=== PATIENT | female | born 1990 | race Caucasian/White ===

== ENCOUNTER 2022-11-20 15:59 | Inpatient (IN) | payer MEDICAID, OTHER ==
[~2022-11-20] VITALS: Ht 172.7 cm; Wt 101.0 kg
[2022-11-20 16:43] LABS: Urine Bacteria NONE SEEN /hpf (None Seen); Urine Blood Negative /uL (Negative); Urine Mucus FEW (None Seen); Urine Specific Gravity 1.023 (1.001-1.035); Urine WBC 1 /hpf (0 - 5)
[2022-11-20 17:03] LABS: Basophils # (auto) 0 10 ^3/uL (0-0.2); Basophils % (auto) 0.5 % (0.0-2.0); Eosinophils # (auto) 0.1 10 ^3/uL (0-0.8); Hemoglobin 10.8 g/dL (12.2-16.2); Lymphocytes # (auto) 1.3 10 ^3/uL (0.4-5.4); Monocytes # (auto) 0.3 10 ^3/uL (0-1.3); Neutrophils # (auto) 4.4 10 ^3/uL (1.6-8.6); White Blood Cell 6.1 10^3/uL (4.4-10.8)
[2022-11-20 17:05] LABS: Lymphocytes % (auto) 20.5 % (10.0-50.0); Mean Corpuscular Hemoglobin 21.9 pg (28.0-32.0); Mean Corpuscular Hgb Conc. 31.6 g/dL (32.0-36.0); Mean Corpuscular Volume 69.2 fL (80.0-100.0); Monocytes % (auto) 5.5 % (0.0-12.0); Neutrophils % (auto) 71.5 % (37.0-80.0); Red Blood Cells 4.92 10^6/uL (4.0-5.20); Red Cell Distribution Width 16.3 % (11.8-14.3)
[2022-11-20] MEDS ORDERED: PANTOPRAZOLE 40 MG/10 ML VIAL INJ IV ONE (17:15)
[2022-11-20] MEDS ORDERED: SODIUM CHLORIDE 0.9% 1,000 ML IV ONE (17:15)
[2022-11-20] MEDS ORDERED: ONDANSETRON HCL 4 MG/2 ML VIAL IV ONE (17:15)
[2022-11-20] MEDS ORDERED: MORPHINE SULFATE INJ 2 MG/ml SYRG IV ONE ×2 (17:15→22:15)
[2022-11-20 17:19] LABS: Albumin 3.5 g/dL (3.4-5.0); Calcium 8.4 mg/dL (8.5-10.1); Potassium 3.5 mmol/L (3.5-5.1)
[2022-11-20 17:22] LABS: BUN/Creatinine Ratio 11.4 (10.0-20.0); Bilirubin, Total 0.4 mg/dL (0.2-1.0); Total Protein 7.2 g/dL (6.4-8.2)
[2022-11-20] MEDS ORDERED: MORPHINE SULFATE INJ 2 MG/ml SYRG IM ONE (17:30)
[2022-11-20 17:37] LABS: INR 0.99 (0.9-1.15); Partial Thromboplastin Time 30.2 sec (24.6-33.4)
[2022-11-20] MEDS ORDERED: IOHEXOL 300 MG/ML 100ML BOTTLE IJ ONE (17:43)
[2022-11-20] MEDS ORDERED: ONDANSETRON HCL 4 MG/2 ML VIAL IV PRN (22:30)
[2022-11-20] MEDS ORDERED: TEMAZEPAM 15 MG CAP PO PRN (22:30)
[2022-11-20 23:23] LABS: Hematocrit 34.1 % (36.0-46.0); Hemoglobin 10.6 g/dL (12.2-16.2)
[2022-11-21 03:48] LABS: Urine Bacteria FEW /hpf (None Seen); Urine Blood Negative /uL (Negative); Urine Mucus FEW (None Seen); Urine WBC 3 /hpf (0 - 5)
[2022-11-21 05:50] LABS: Basophils # (auto) 0 10 ^3/uL (0-0.2); Basophils % (auto) 0.7 % (0.0-2.0); Eosinophils # (auto) 0.1 10 ^3/uL (0-0.8); Eosinophils % (auto) 1.9 % (0.0-7.0); Hematocrit 31.1 % (36.0-46.0); Hemoglobin 9.9 g/dL (12.2-16.2); Lymphocytes # (auto) 1.1 10 ^3/uL (0.4-5.4); Lymphocytes % (auto) 21.3 % (10.0-50.0); Mean Corpuscular Hgb Conc. 31.7 g/dL (32.0-36.0); Mean Corpuscular Volume 69.5 fL (80.0-100.0); Monocytes # (auto) 0.4 10 ^3/uL (0-1.3); Monocytes % (auto) 8.1 % (0.0-12.0); Neutrophils # (auto) 3.6 10 ^3/uL (1.6-8.6); Red Blood Cells 4.48 10^6/uL (4.0-5.20); Red Cell Distribution Width 16.3 % (11.8-14.3); White Blood Cell 5.3 10^3/uL (4.4-10.8)
[2022-11-21] MEDS ORDERED: metroNIDAZOLE 500MG/100ML 100 ML IV SCH (06:00)
[2022-11-21 06:23] LABS: Potassium 3.8 mmol/L (3.5-5.1)
[2022-11-21] MEDS: metroNIDAZOLE 500MG/100ML 100 ML IV SCH ×3 (06:25→21:55)
[2022-11-21 06:31] LABS: Albumin 2.9 g/dL (3.4-5.0); BUN/Creatinine Ratio 9.3 (10.0-20.0); Bilirubin, Total 0.3 mg/dL (0.2-1.0); Calcium 8.1 mg/dL (8.5-10.1); Total Protein 6.2 g/dL (6.4-8.2)
[2022-11-21] MEDS: HYDROcodone-ACET 5/325MG TAB PO PRN ×2 (06:41→20:21)
[2022-11-21] MEDS: cefTRIAXone 1GM/50ML D5W 50 ML IV SCH (09:16)
[2022-11-21] MEDS: PANTOPRAZOLE 40 MG TAB PO SCH (10:05)
[2022-11-21] MEDS: CIPROFLOXACIN 400MG/200ML 200 ML IV SCH ×2 (10:06→22:55)
[2022-11-21 16:53] VITALS: BP 113/60
[2022-11-21 17:00] VITALS: BP_SYST 110; BP_SYST 113; BP_DIAS 60; BP_DIAS 66
[2022-11-21 21:56] VITALS: BP 103/43
[2022-11-22 05:19] VITALS: BP 96/40
[2022-11-22] MEDS: metroNIDAZOLE 500MG/100ML 100 ML IV SCH ×3 (05:47→22:32)
[2022-11-22 09:00] VITALS: BP 95/53
[2022-11-22] MEDS: PANTOPRAZOLE 40 MG TAB PO SCH (09:22)
[2022-11-22] MEDS: cefTRIAXone 1GM/50ML D5W 50 ML IV SCH (09:22)
[2022-11-22] MEDS: CIPROFLOXACIN 400MG/200ML 200 ML IV SCH (09:23)
[2022-11-22] MEDS: HYDROcodone-ACET 5/325MG TAB PO PRN (11:24)
[2022-11-22] MEDS: LACTATED RINGER'S 1,000 ML IV SCH ×2 (12:30→18:37)
[2022-11-22 13:00] VITALS: BP 114/44
[2022-11-22 17:00] VITALS: BP 112/34
[2022-11-22] MEDS: ACETAMINOPHEN 325 MG TAB PO PRN (18:00)
[2022-11-22 22:00] VITALS: BP 113/55
[2022-11-23 05:00] VITALS: BP 101/54
[2022-11-23] MEDS: metroNIDAZOLE 500MG/100ML 100 ML IV SCH ×2 (06:00→14:00)
[2022-11-23] MEDS: LACTATED RINGER'S 1,000 ML IV SCH ×3 (06:00→15:10)
[2022-11-23] MEDS: ACETAMINOPHEN 325 MG TAB PO PRN (09:05)
[2022-11-23 09:11] VITALS: BP 118/57
[2022-11-23] MEDS ORDERED: LEVO500T31 PO (10:56)
[2022-11-23] MEDS ORDERED: METR500T PO (10:56)
[2022-11-23] MEDS ORDERED: PANT40T PO (10:56)
[2022-11-23 12:40] VITALS: BP 109/55
== END 2022-11-23 15:00 | disposition home or self-care (01) | DRG 249 ==
LOC: ER 15:59 → OVERFLOW 22:21 → WEST WING 11-21 14:21
PROVIDERS: ADMIT Nurse Practitioner; ATTEND Family Medicine
DX: K52.9 Noninfective gastroenteritis and colitis, unspecified (principal); K92.2 Gastrointestinal hemorrhage, unspecified; D64.9 Anemia, unspecified; E86.0 Dehydration; Z20.822 Contact with and (suspected) exposure to COVID-19
CPT/HCPCS: 36415; 74177; 80053; 81001; 82270; 83690; 85014; 85018; 85025; 85610; 85730; 86850; 86900; 86901; 87045; 87426; 87427; 87493; 96361; 96372; 96374; 96375; C9113; G0378; J0696; J2405; J3490

== ENCOUNTER 2023-02-11 04:05 | Emergency (ER) | payer MEDICAID ==
[~2023-02-11] VITALS: Ht 167.6 cm; Wt 107.0 kg
[~2023-02-11 04:05] MED LIST: LEVO500T31 PO; METR500T PO; PANT40T PO
[2023-02-11] MEDS ORDERED: SODIUM CHLORIDE 0.9% 1,000 ML IV ONE ×2 (04:30)
[2023-02-11 04:48] LABS: Urine Bacteria FEW /hpf (None Seen); Urine Blood Negative /uL (Negative); Urine Mucus FEW (None Seen); Urine Specific Gravity 1.016 (1.001-1.035); Urine WBC 27 /hpf (0 - 5)
[2023-02-11 04:49] LABS: Basophils # (auto) 0.1 10 ^3/uL (0-0.2); Eosinophils # (auto) 0.2 10 ^3/uL (0-0.8); Lymphocytes # (auto) 1.4 10 ^3/uL (0.4-5.4); Monocytes # (auto) 0.4 10 ^3/uL (0-1.3); Neutrophils # (auto) 6.3 10 ^3/uL (1.6-8.6)
[2023-02-11 04:52] LABS: Basophils % (auto) 0.8 % (0.0-2.0); Eosinophils % (auto) 2.1 % (0.0-7.0); Hematocrit 37.4 % (36.0-46.0); Lymphocytes % (auto) 17.4 % (10.0-50.0); Mean Corpuscular Hemoglobin 23.8 pg (28.0-32.0); Mean Corpuscular Volume 74.2 fL (80.0-100.0); Monocytes % (auto) 4.2 % (0.0-12.0); Neutrophils % (auto) 75.5 % (37.0-80.0); Nucleated Red Blood Cells % 0.1 %; Red Blood Cells 5.04 10^6/uL (4.0-5.20); Red Cell Distribution Width 17.9 % (11.8-14.3); White Blood Cell 8.3 10^3/uL (4.4-10.8)
[2023-02-11 04:54] LABS: Albumin 3.4 g/dL (3.4-5.0); Calcium 8.4 mg/dL (8.5-10.1)
[2023-02-11 04:57] LABS: BUN/Creatinine Ratio 5.4 (10.0-20.0); Bilirubin, Total 0.2 mg/dL (0.2-1.0); Total Protein 6.6 g/dL (6.4-8.2)
[2023-02-11 07:35] VITALS: BP 119/58
[2023-02-11] MEDS ORDERED: CEPH250C PO (08:43)
== END 2023-02-11 08:54 | disposition home or self-care (01) ==
LOC: ER 04:05 → EDUNIT# 04:05 → EDBD 04:05 → ER 08:54
DX: O26.891 Other specified pregnancy related conditions, first trimester (principal); N39.0 Urinary tract infection, site not specified; R10.2 Pelvic and perineal pain; Z3A.01 Less than 8 weeks gestation of pregnancy; Z79.899 Other long term (current) drug therapy
CPT/HCPCS: 36415; 76801; 80053; 81001; 84702; 85025; 96360; 99284; J7030